=== PATIENT | male | born 1960 | race Native Hawaiian/Other Pacific Islander ===

== ENCOUNTER 2017-05-03 07:31 | Day surgery (SDC) | payer MEDICARE, OTHER ==
[2017-05-03 08:48] VITALS: BMI 24.5
[2017-05-03] MEDS ORDERED: Propofol 10 mg/ml Inj (20 ML) ONE (09:00)
[2017-05-03] MEDS ORDERED: Lidocaine 1% Inj (20ml) ONE (09:01)
[2017-05-03] MEDS ORDERED: ePHEDrine 50 mg/ml Inj ONE (09:37)
[2017-05-03] MEDS ORDERED: Sodium Chloride 0.9% 1,000 ML IV SCH (09:45)
[2017-05-03 10:08] VITALS: O2SAT 99
[2017-05-03 10:31] VITALS: PULSE 72
[2017-05-03 10:38] VITALS: BP 104/68; RESP 17; TEMP 97.4
== END 2017-05-03 11:25 | disposition home or self-care (01) ==
LOC: ENDO 07:31
PROVIDERS: ATTEND Specialist
DX: D12.3 Benign neoplasm of transverse colon (principal); D12.4 Benign neoplasm of descending colon; K64.8 Other hemorrhoids; I12.0 Hypertensive chronic kidney disease with stage 5 chronic kidney disease or end stage renal disease; N18.6 End stage renal disease; Z99.2 Dependence on renal dialysis; D64.9 Anemia, unspecified; Z12.11 Encounter for screening for malignant neoplasm of colon
CPT/HCPCS: 45385; 88305; J2704; J7040

== ENCOUNTER 2018-09-23 08:19 | Outpatient (CLI) | payer MEDICARE, OTHER | END 2018-10-03 12:08 | disposition home or self-care (01) | LOC: RAD 08:19 | DX: E04.0 Nontoxic diffuse goiter (principal) ==